=== PATIENT | female | born 1990 | race Caucasian/White ===

== ENCOUNTER 2016-05-12 21:42 | Emergency (ER) | payer MEDICAID ==
[2016-05-12 22:36] VITALS: BP 132/73
== END 2016-05-13 01:50 | disposition left against medical advice (07) ==
LOC: ER 21:42
DX: Z53.21 Procedure and treatment not carried out due to patient leaving prior to being seen by health care provider (principal)

== ENCOUNTER 2016-05-13 19:23 | Emergency (ER) | payer MEDICAID ==
--- NOTE | 2016-05-13 20:16 | ER Document Report ---
ED Medical Screen (RME) - General Chief Complaint: Abdominal Pain Stated Complaint: STOMACH PAIN TRAVEL OUTSIDE OF THE [place] IN LAST 30 DAYS: No - HPI Notes: 05/13/16 20:15 Patient is with vaginal spotting. Patient is a - Related Data Allergies/Adverse Reactions: No Known Allergies Allergy (Verified 01/15/16 17:25) Past Medical History - Past Medical History Cardiac Medical History: Reports: Hx Hypertension - PIH Denies: Hx Coronary Artery Disease, Hx Heart Attack Pulmonary Medical History: Denies: Hx Asthma, Hx Bronchitis, Hx COPD, Hx Pneumonia, Hx Tuberculosis Neurological Medical History: Reports: Hx Migraine. Denies: Hx Cerebrovascular Accident, Hx Seizures Renal/ Medical History: Denies: Hx Peritoneal Dialysis GI Medical History: Reports: Hx Gastroesophageal Reflux Disease Musculoskeltal Medical History: Reports Hx Arthritis - hands Psychiatric Medical History: Reports: Hx Anxiety, Hx Bipolar Disorder, Hx Depression Past Surgical History: Reports: Hx Cholecystectomy. Denies: Hx Hysterectomy, Hx Pacemaker - Immunizations Immunizations up to date: Yes Hx Diphtheria, Pertussis, Tetanus Vaccination: Yes Review of Systems - Review of Systems Female Genitourinary: Vaginal bleeding -: Yes All other systems reviewed and negative Physical Exam - Vital signs Vitals: Temp Pulse Resp BP Pulse Ox 98.2 F 75 18 129/75 H 98 05/13/16 19:34 05/13/16 19:34 05/13/16 19:34 05/13/16 19:34 05/13/16 19:34 - Abdominal Inspection: Normal, Obese Distension: No distension Bowel sounds: Normal Tenderness: Nontender Course - Vital Signs Vital signs: Temp Pulse Resp BP Pulse Ox 98.2 F 75 18 129/75 H 98 05/13/16 19:34 05/13/16 19:34 05/13/16 19:34 05/13/16 19:34 05/13/16 19:34
[2016-05-13 20:30] LABS: ABSOLUTE BASOPHILS # (AUTO) 0.1 10^3/uL (0.0-0.2); ABSOLUTE EOSINOPHILS # (AUTO) 0.7 10^3/uL (0.0-0.6); ABSOLUTE LYMPHOCYTES (AUTO) 2.9 10^3/uL (0.5-4.7); ABSOLUTE MONOCYTES (AUTO) 0.7 10^3/uL (0.1-1.4); ABSOLUTE NEUT (AUTO) 6.8 10^3/uL (1.7-8.2); BASOPHILS % (AUTO) 0.6 % (0-2); EOSINOPHILS % (AUTO) 6.4 % (0-6); HEMATOCRIT 37.2 % (36.0-47.0); HEMOGLOBIN 13.5 g/dL (12.0-15.5); HGB HCT DIFFERENCE 3.3; LYMPHOCYTES % (AUTO) 25.7 % (13-45); MEAN CORPUSCULAR HEMOGLOBIN 33.7 pg (27.0-33.4); MEAN CORPUSCULAR HGB CONC 36.3 g/dL (32.0-36.0); MEAN CORPUSCULAR VOLUME 93 fl (80-97); MONOCYTES % (AUTO) 6.4 % (3-13); RED BLOOD COUNT 4.01 10^6/uL (3.72-5.28); RED CELL DISTRIBUTION WIDTH 12.9 % (11.5-14.0); SEGMENTED NEUTROPHILS % (AUTO) 60.9 % (42-78); WHITE BLOOD COUNT 11.1 10^3/uL (4.0-10.5)
[2016-05-13 20:42] LABS: APPEARANCE,URINE CLOUDY; BILIRUBIN,URINE NEGATIVE (NEGATIVE); GLUCOSE, URINE NEGATIVE (NEGATIVE); KETONES,URINE NEGATIVE (NEGATIVE); LEUKOCYTE ESTERASE,URINE LARGE (NEGATIVE); NITRITE,URINE NEGATIVE (NEGATIVE); PROTEIN,URINE NEGATIVE (NEGATIVE); URINE SPECIFIC GRAVITY 1.028; UROBILINOGEN,URINE NEGATIVE mg/dL (<2.0)
[2016-05-13 20:57] LABS: ALANINE AMINOTRANSFERASE 35 U/L (9-52); ALKALINE PHOSPHATASE 77 U/L (38-126); ANION GAP 12 (5-19); ASPARTATE AMINO TRANSFERASE 19 U/L (14-36); BILIRUBIN,DIRECT 0.1 mg/dL (0.0-0.4); BILIRUBIN,TOTAL 0.3 mg/dL (0.2-1.3); BLOOD UREA NITROGEN 8 mg/dL (7-20); CARBON DIOXIDE 22 mmol/L (22-30); CHLORIDE 105 mmol/L (98-107); CREATININE RESULT 0.51 mg/dL (0.52-1.25); GLUCOSE 82 mg/dL (75-110); POTASSIUM 4.3 mmol/L (3.6-5.0); SODIUM 138.5 mmol/L (137-145); TOTAL PROTEIN 6.8 g/dL (6.3-8.2)
--- NOTE | 2016-05-13 21:02 | ER Document Report ---
ED General - General Chief Complaint: Abdominal Pain Stated Complaint: STOMACH PAIN Time seen by provider: 21:01 Mode of Arrival: Ambulatory Information source: Patient Notes: This is a 25-year-old female 2 para 1 last normal menstrual period March 01, approximately 10 weeks , presents to the emergency room with 3 days history of intermittent sharp suprapubic pain. Patient states she started having vaginal spotting this morning. Patient denies any near syncopal symptoms. TRAVEL OUTSIDE OF THE [place] IN LAST 30 DAYS: No - HPI Onset: Just prior to arrival Onset/Duration: Gradual Quality of pain: Sharp Severity: None Pain Level: Denies Associated symptoms: denies: Chills, Fever, Shortness of breath Exacerbated by: Denies Relieved by: Denies Similar symptoms previously: No Recently seen / treated by doctor: No - Related Data Allergies/Adverse Reactions: No Known Allergies Allergy (Verified 01/15/16 17:25) Past Medical History - General Information source: Patient - Social History Smoking Status: Never Smoker Cigarette use (# per day): No Chew tobacco use (# tins/day): No Frequency of alcohol use: None Drug Abuse: None Lives with: Family Family History: Reviewed & Not Pertinent Patient has suicidal ideation: No Patient has homicidal ideation: No - Past Medical History Cardiac Medical History: Reports: Hx Hypertension - PIH Denies: Hx Coronary Artery Disease, Hx Heart Attack Pulmonary Medical History: Denies: Hx Asthma, Hx Bronchitis, Hx COPD, Hx Pneumonia, Hx Tuberculosis Neurological Medical History: Reports: Hx Migraine. Denies: Hx Cerebrovascular Accident, Hx Seizures Renal/ Medical History: Denies: Hx Peritoneal Dialysis GI Medical History: Reports: Hx Gastroesophageal Reflux Disease Musculoskeltal Medical History: Reports Hx Arthritis - hands Psychiatric Medical History: Reports: Hx Anxiety, Hx Bipolar Disorder, Hx Depression Past Surgical History: Reports: Hx Cholecystectomy. Denies: Hx Hysterectomy, Hx Pacemaker - Immunizations Immunizations up to date: Yes Hx Diphtheria, Pertussis, Tetanus Vaccination: Yes Review of Systems - Review of Systems Notes: Review of systems: Constitutional: Denies fever, chills. EENT: Denies ear pain, sinus tenderness, throat pain, throat swelling. Cardiovascular: Denies chest pain, palpitations, dyspnea or edema. Respiratory: Denies wheezing, cough, hemoptysis. Abdomen: Denies nausea, vomiting, diarrhea. Denies BRBPR or melena. Genitourinary: See H&P Musculoskeletal: denies joint pain or swelling, denies back pain. Neurologic: Denies headache, photophobia, neck stiffness, weakness. Denies loss of bowel or bladder function. Denies saddle anesthesia. Skin: Denies rash, lesions. Physical Exam - Vital signs Vitals: Temp Pulse Resp BP Pulse Ox 98.2 F 75 18 129/75 H 98 05/13/16 19:34 05/13/16 19:34 05/13/16 19:34 05/13/16 19:34 05/13/16 19:34 Notes: Physical exam: GENERAL: 35-year-old female, ambulating, alert and oriented 3, no acute distress. HEAD: Atraumatic, normocephalic. EYES: Pupils equal round and reactive to light, extraocular movements intact, sclera anicteric, conjunctiva are normal. ENT: TMs normal, nares patent, oropharynx clear without exudates. Moist mucous membranes. NECK: Normal range of motion, supple without lymphadenopathy or JVD. LUNGS: Breath sounds clear to auscultation bilaterally and equal. No wheezes rales or rhonchi. HEART: Regular rate and rhythm without murmurs, rubs or gallops. ABDOMEN: Soft, normoactive bowel sounds. No tenderness to palpation. No guarding, no rebound. No masses appreciated. EXTREMITIES: Normal range of motion, no pitting or edema. No clubbing or cyanosis. NEUROLOGICAL: Cranial nerves II through XII grossly intact. Normal speech, normal gait. PSYCH: Normal mood, normal affect. SKIN: Warm, Dry, normal turgor, no rashes or lesions noted. Course - Vital Signs Vital signs: Temp Pulse Resp BP Pulse Ox 98.2 F 75 18 129/75 H 98 05/13/16 19:34 05/13/16 19:34 05/13/16 19:34 05/13/16 19:34 05/13/16 19:34 - Laboratory Result Diagrams: 05/13/16 20:15 05/13/16 20:15 Laboratory results interpreted by me: 05/13/16 05/13/16 05/13/16 20:15 20:15 20:15 WBC 11.1 H MCH 33.7 H MCHC 36.3 H Eosinophils % 6.4 H Absolute Eosinophils 0.7 H Creatinine 0.51 L Beta HCG, Quant 605595.00 H Ur Leukocyte Esterase LARGE H Urine Ascorbic Acid 20 H - Diagnostic Test Radiology reviewed: Image reviewed, Reports reviewed - History ultrasound shows an intrauterine at 10 weeks gestation Discharge - Discharge Clinical Impression: vaginal bleeding in early , UTI Condition: Stable Disposition: HOME, SELF-CARE Additional Instructions: The ultrasound showed that the baby is in the right place and has a good heartbeat. The gestational age was at 10 weeks. Your blood work was in the normal range. Recommendations: Do not take aspirin or ibuprofen. Tylenol was okay. Avoid heavy lifting, intercourse, tampons. Follow-up with your workers compensation claims assistant as planned. Return to the emergency room for worsening pain, bleeding, Any concerns or getting worse. Take antibiotics as prescribed. Worsening symptoms. Prescriptions: Cephalexin Monohydrate [Keflex 500 mg Capsule] 500 mg PO QID #20 capsule Referrals: SHIRA JO MD [Primary Care Provider] - Follow up as needed
[2016-05-13 22:58] VITALS: BP 130/77
== END 2016-05-13 22:57 | disposition home or self-care (01) ==
LOC: ER 19:23
DX: O23.41 Unspecified infection of urinary tract in pregnancy, first trimester (principal); R10.9 Unspecified abdominal pain; Z3A.10 10 weeks gestation of pregnancy
CPT/HCPCS: 36415; 76801; 80053; 81001; 83690; 84702; 85025; 86900; 86901; 99284

== ENCOUNTER 2016-09-09 18:42 | Outpatient (CLI) | payer MEDICAID ==
[2016-09-09 19:24] LABS: APPEARANCE,URINE CLOUDY; BILIRUBIN,URINE NEGATIVE (NEGATIVE); GLUCOSE, URINE NEGATIVE (NEGATIVE); KETONES,URINE TRACE mg/dL (NEGATIVE); LEUKOCYTE ESTERASE,URINE SMALL (NEGATIVE); NITRITE,URINE NEGATIVE (NEGATIVE); PROTEIN,URINE 30 mg/dL (NEGATIVE); URINE SPECIFIC GRAVITY 1.031; UROBILINOGEN,URINE NEGATIVE mg/dL (<2.0)
[2016-09-09 21:25] LABS: URINE BARBITURATES SCREEN NEGATIVE; URINE METHADONE SCREEN NEGATIVE; URINE OPIATES LOW NEGATIVE; URINE PHENCYCLIDINE SCREEN NEGATIVE
--- NOTE | 2016-09-09 21:43 | RADIOLOGY REPORT (SQ) ---
EXAM DESCRIPTION: U/S OB LIMITED COMPLETED DATE/TIME: 09/09/2016 9:23 pm REASON FOR STUDY: Cervical length COMPARISON: None. TECHNIQUE: Limited transvaginal and transabdominal grayscale ultrasound for evaluation of specific r equested obstetrical parameters. LIMITATIONS: None. FINDINGS: CERVICAL LENGTH: 4.3 cm Closed. JORGITO: Not performed. FHR: 127 beats per minute. PRESENTATION: Cephalic. OTHER: No other significant findings. IMPRESSION: LIMITED OBSTETRICAL ULTRASOUND WITH MEASURED PARAMETERS DELINEATED ABOVE. Trimester of : Third trimester - 28 weeks to delivery. TECHNICAL DOCUMENTATION: JOB ID: [id number] [employer]- All Rights Reserved
== END 2016-09-09 21:57 | disposition home or self-care (01) ==
LOC: LC 18:42
PROVIDERS: ATTEND Obstetrics & Gynecology
DX: O47.1 False labor at or after 37 completed weeks of gestation (principal)
CPT/HCPCS: 76815; 80307; 81005; 94760

== ENCOUNTER 2016-11-20 16:32 | Outpatient (CLI) | payer MEDICAID ==
--- NOTE | 2016-11-20 17:11 | Non Stress Test Report ---
Non Stress Test Datetime Report Generated by CPN: 11/20/2016 17:10 DEMOGRAPHIC EGA NST: 38.0 INDICATION Indication for Study: Ordered by Provider MONITORING Monitor Explained: Monitor Explained; Test Explained; Patient Verbalized Understanding Time on Monitor: 11/20/2016 16:47 Time off Monitor: 11/20/2016 17:08 NST Duration: 21 NST INTERVENTIONS NST Interventions: PO Hydration; Reposition Patient Physician Notified NST: J. Gusman, CNM BABY A: [id number] BABY A Movement : Present FHR Baseline : 130 Accelerations : 15X15 Decelerations : None Variability : Moderate 6-25bpm NST Review: Meets Criteria for Reactive NST NST Review and Verified By : XENIA Rodriguez Results: Reactive NST REPORT Report Trigger: Send Report
== END 2016-11-20 17:05 | disposition home or self-care (01) ==
LOC: LC 16:32
PROVIDERS: ATTEND Obstetrics & Gynecology
PROC: 4A1HXCZ Monitoring of Products of Conception, Cardiac Rate, External Approach (ICD-10-PCS; principal; 2016-11-20)
DX: Z34.83 Encounter for supervision of other normal pregnancy, third trimester (principal); Z36.89 Encounter for other specified antenatal screening; Z3A.38 38 weeks gestation of pregnancy
CPT/HCPCS: 59025

== ENCOUNTER 2016-12-12 10:59 | Outpatient (CLI) | payer MEDICAID ==
--- NOTE | 2016-12-14 05:37 | Non Stress Test Report ---
Non Stress Test Datetime Report Generated by CPN: 12/14/2016 05:36 DEMOGRAPHIC EGA NST: 41.1 INDICATION Indication for Study: Ordered by Provider Indication for Study (NST) Other: nst MONITORING Monitor Explained: Monitor Explained; Test Explained; Patient Verbalized Understanding Time on Monitor: 12/12/2016 11:10 Time off Monitor: 12/12/2016 11:37 NST Duration: 27 NST INTERVENTIONS NST Interventions: PO Hydration; Reposition Patient Physician Notified NST: Dr Balbuena BABY A: [id number] BABY A Movement : Present Contraction Frequency : 8.5-9 FHR Baseline : 120 Accelerations : 15X15 Decelerations : None Variability : Moderate 6-25bpm NST Review: Meets Criteria for Reactive NST NST Review and Verified By : XENIA Calderon Results: Reactive NST REPORT Report Trigger: Send Report
== END 2016-12-12 11:40 | disposition home or self-care (01) ==
LOC: LC 10:59
PROVIDERS: ATTEND Student in an Organized Health Care Education/Training Program
PROC: 4A1HXCZ Monitoring of Products of Conception, Cardiac Rate, External Approach (ICD-10-PCS; principal; 2016-12-12)
DX: O48.0 Post-term pregnancy (principal); O47.1 False labor at or after 37 completed weeks of gestation; Z3A.41 41 weeks gestation of pregnancy
CPT/HCPCS: 59025

== ENCOUNTER 2016-12-14 06:26 | Inpatient (IN) | payer MEDICAID ==
[2016-12-14] MEDS ORDERED: RINGERS SOLUTION,LACTATED 300 ML IV ONE (06:35)
[2016-12-14] MEDS ORDERED: RINGERS SOLUTION,LACTATED 1,000 ML IV PRN (06:35)
[2016-12-14] MEDS ORDERED: OXYTOCIN/NORMAL SALINE 20 UNIT/1,000 ML RTUINJ IV PRN ×2 (06:35→13:03)
[2016-12-14 07:34] LABS: APPEARANCE,URINE CLOUDY; BILIRUBIN,URINE SMALL (NEGATIVE); GLUCOSE, URINE NEGATIVE (NEGATIVE); KETONES,URINE NEGATIVE (NEGATIVE); LEUKOCYTE ESTERASE,URINE LARGE (NEGATIVE); NITRITE,URINE NEGATIVE (NEGATIVE); PROTEIN,URINE 100 mg/dL (NEGATIVE); URINE SPECIFIC GRAVITY 1.033
[2016-12-14 07:41] LABS: ABSOLUTE EOSINOPHILS # (AUTO) 0.2 10^3/uL (0.0-0.6); ABSOLUTE LYMPHOCYTES (AUTO) 1.6 10^3/uL (0.5-4.7); ABSOLUTE MONOCYTES (AUTO) 0.4 10^3/uL (0.1-1.4); ABSOLUTE NEUT (AUTO) 4.6 10^3/uL (1.7-8.2); BASOPHILS % (AUTO) 0.6 % (0-2); EOSINOPHILS % (AUTO) 2.7 % (0-6); HEMATOCRIT 33.9 % (36.0-47.0); HEMOGLOBIN 12.1 g/dL (12.0-15.5); HGB HCT DIFFERENCE 2.4; MEAN CORPUSCULAR HEMOGLOBIN 31.9 pg (27.0-33.4); MEAN CORPUSCULAR HGB CONC 35.5 g/dL (32.0-36.0); MEAN CORPUSCULAR VOLUME 90 fl (80-97); MONOCYTES % (AUTO) 6.1 % (3-13); RED BLOOD COUNT 3.78 10^6/uL (3.72-5.28); SEGMENTED NEUTROPHILS % (AUTO) 67.6 % (42-78); WHITE BLOOD COUNT 6.8 10^3/uL (4.0-10.5)
[2016-12-14] MEDS ORDERED: OXYTOCIN/NORMAL SALINE 20 UNIT/1,000 ML RTUINJ ONE (07:47)
[2016-12-14 07:59] LABS: URINE BARBITURATES SCREEN NEGATIVE; URINE METHADONE SCREEN NEGATIVE; URINE OPIATES LOW NEGATIVE; URINE PHENCYCLIDINE SCREEN NEGATIVE
[2016-12-14] MEDS ORDERED: MISOPROSTOL 0.2 MG TABLET ONE (10:03)
[2016-12-14] MEDS ORDERED: LIDOCAINE 1% INJ-PF (10 MG/ML) 30 ML SDV ONE (10:03)
[2016-12-14] MEDS ORDERED: BUPIVACAINE HCL 0.25 % INJ/PF (2.5 MG/1 ML) 30 ML VIAL ONE (10:20)
[2016-12-14] MEDS ORDERED: EPHEDRINE SULFATE INJ 50 MG/1 ML AMPULE ONE (10:20)
[2016-12-14] MEDS ORDERED: FENTANYL/BUPIVACAINE/NS/PF 200 MCG/100 ML RTUINJ EPI ONE (10:20)
[2016-12-14] MEDS ORDERED: ACETAMINOPHEN WITH CODEINE #3 TABLET PO PRN ×2 (13:03)
[2016-12-14] MEDS ORDERED: DIPH/PERTUSS(ACELL)/TETANUS VAC/PF 0.5 ML SYR (>=10YO) IM PRN (13:03)
[2016-12-14] MEDS ORDERED: BENZOCAINE/MENTHOL AEROSOL SPRAY 56 ML TOP PRN (13:03)
[2016-12-14] MEDS ORDERED: DIBUCAINE 1% OINTMENT 28 GM TP PRN (13:03)
[2016-12-14] MEDS ORDERED: MEASLES,MUMPS&RUBELLA VACC/PF 0.5 ML VIAL SUBCUT PRN (13:03)
[2016-12-14] MEDS ORDERED: ZOLPIDEM TARTRATE 5 MG TABLET PO PRN (13:03)
--- NOTE | 2016-12-14 13:12 | Delivery Summary ---
Del Sum A-C Datetime Report Generated by CPN: 12/14/2016 13:12 DELIVERY PERSONNEL DELIVERY PERSONNEL: [id number] Delivery Doctor:: Sharon Jefferson CNM Nurse Endless Track Vehicle Supervisor Certified:: Sharon Jefferson CNM Labor and Delivery Nurse:: Milagro Toledo RNfrozen foods manager Nurse:: Edna Rico RN Nursery Nurse:: Inessa Sarmiento RN Student Observers:: MILTON Rolle/HOME SCHOOL TEACHER: Lashell Stone, SENIOR HOUSEKEEPER Additional Personnel: : Lanie Cordova RNClyde MATERNAL INFORMATION Delivery Anesthesia: Epidural Medications After Delivery: Pitocin Drip 20 Units/1000ml NSS Estimated Blood Loss (ml): 300 Maternal Complications: None Provider Comments: SVDVF infant vigorous, to mothers abd. Cord clamped x 2 cut per family member. Cord blood collected, placenta intact via Jefferson mechanism, hemostasis acheived. EBL 300. Mother and infant stable. LABOR SUMMARY EDC: 12/04/2016 00:00 No. Babies in Womb: 1 Attempted: No Labor Anesthesia: Epidural LABOR INFORMATION Reason for Induction: Postterm Onset of Labor: 12/14/2016 08:32 Complete Dilatation: 12/14/2016 11:13 Oxytocin: Induction Group B Beta Strep: Negative Steroids Given: None Reason Steroids Not Administered: Not Applicable MEMBRANES Membranes Rupture Method: Artificial Rupture of Membranes: 12/14/2016 08:03 Length of Rupture (hr): 3.55 Amniotic Fluid Color: Light Meconium Amniotic Fluid Amount: Moderate Amniotic Fluid Odor: Normal STAGES OF LABOR Stage 1 hr: 2 Stage 1 min: 41 Stage 2 hr: 0 Stage 2 min: 23 Stage 3 hr: 0 Stage 3 min: 13 Total Time in Labor hr: 3 Total Time in Labor min: 17 VAGINAL DELIVERY Episiotomy: None Laceration #1: Perineal Laceration Extension #1: First Degree Other Laceration: bilat labial 1* Laceration Repair: Yes Laceration Repair Note: RT labia, 1 interrupted stitch with 3.0 chromic Sponge Count Correct: N/A Sharps Count Correct: N/A CSECTION DELIVERY Primary Indication: N/A Secondary Indication: N/A CSection Incidence: N/A Labor: N/A Elective: N/A CSection Incision: N/A BABY A INFORMATION Infant Delivery Date/Time: 12/14/2016 11:36 Method of Delivery: Vaginal Born in Route : No : N/A Forceps: N/A Vacuum Extraction: N/A Shoulder Dystocia : No PRESENTATION/POSITION BABY A Presentation: Cephalic Cephalic Presentation: Vertex Vertex Position: Right Occipital Anterior Breech Presentation: N/A PLACENTA INFORMATION BABY A Placenta Delivery Time : 12/14/2016 11:49 Placenta Method of Delivery: Spontaneous Placenta Status: Delivered SCORES BABY A Heart Rate 1 min: >100 bpm Resp Effort 1 min: Good Cry Reflex Irritability 1 min: Cough or Sneeze or Pulls Away Muscle Tone 1 min: Active Motion Color 1 min: Body [place], Extremities Blue Resuscitation Effort 1 min: Tactile Stimulation SCORE 1 MIN: 9 Heart Rate 5 min: >100 bpm Resp Effort 5 min: Good Cry Reflex Irritability 5 min: Cough or Sneeze or Pulls Away Muscle Tone 5 min: Active Motion Color 5 min: Body [place], Extremities Blue SCORE 5 MIN: 9 INFANT INFORMATION BABY A Gestational Age at Delivery: 41.3 Gestational Status: Late Term- 41- 41.6 Weeks Outcome : Liveborn Infant Condition : Stable Infant Sex: Male IDENTIFICATION BABY A Infant Verification Date/Time: 12/21/2016 11:55 ID Band Number: [id number] Mother's Name Verified: Yes RN Verifying Infant: A. Bobyine RN/ CArleen Rico RN WEIGHT/LENGTH BABY A Infant Birthweight (gm): 3645 Infant Weight (lb): 8 Infant Weight (oz): 1 Infant Length (in): 20.50 Infant Length (cm): 52.07 CORD INFORMATION BABY A No. Cord Vessels: 3 Nuchal Cord : N/A Cord Blood Taken: Yes-For Storage (Mom's Blood type +) Infant Suction: None ASSESSMENT BABY A Infant Complications: None Physical Findings at Delivery: Within Normal Limits Infant Respirations: Appears Normal Skin to Skin: Yes Skin to Skin Time (min): 60 Smoking Pipe Liner/ALS Called : No Care By: Inessa Torsten, RN Transferred To: Remains with Mother BABY B INFORMATION : N/A SIGNATURES Assignment: Phoenix Salguero MD Signature: with User ID: [email or web address] : with User ID: [email or web address] : I was personally available for consultation and serving as supervising physician for the MLP.
--- NOTE | 2016-12-14 14:13 | Admission Physical ---
Datetime Report Generated by CPN: 12/14/2016 14:13 CURRENT ADMISSION Chief Complaint: Scheduled Induction of Labor Indication for Induction: Postterm Indication for Induction: No Active Labor Admit Plan: Initiate Labor Induction Protocol Admit Plan- Other: GBS neg ALLERGIES Medication Allergies: Yes Medication Allergies: No Known Allergies (12/14/2016) Medication Allergies: No Known Allergies (11/20/2016) Medication Allergies: No Known Allergies (09/09/2016) Medication Allergies: No Known Allergies (01/15/2016) Medication Allergies: zyrtec Medication Allergies: No Known Allergies (07/21/2013) Latex: No Latex Allergies Food Allergies: N/A Environmental Allergies: N/A OBSTETRICAL HISTORY EDC: 12/04/2016 00:00 : 2 Para: 1 Term: 1 : 0 SAB: 0 IAB: 0 Ectopic: 0 Livin Cesareans: 0 VBACs: 0 Multiple Births: 0 Gestational Diabetes: No Rh Sensitization: No Incompetent Cervix: No CARMEN: No Infertility: No ART Treatment: No Uterine Anomaly: No IUGR: Yes Hx Previous C/S: No Macrosomia: No Hx Loss/Stillborn: No PIH: No Hx : No Placenta Previa/Abruption: No Depression/PP Depression: Yes PTL/PROM: No Post Hemorrhage: No Current Procedures: Ultrasound Obstetrical History Comments: G1: 2011, female 5# 3oz, induced for oligo @ 39 weeks G2: current SEE RECORDS Alcohol: No Marijuana : No Cocaine: No Other Illicit Drugs: No Cigarettes: Current Everyday Smoker. [id number] Cigarette Frequency: > 10 per day Advised to Stop: Yes MEDICAL HISTORY Diabetes: No Blood Transfusion: No Pulmonary Disease (Asthma, TB): No Breast Disease: No Hypertension: No Sap Abap Programmer Surgery: Yes Heart Disease: No Hosp/Surgery: Yes Autoimmune Disorder: No Anesthetic Complications: No Kidney Disease: Yes Abnormal Pap Smear: Yes Neuro/Epilepsy: No Psychiatric Disorders: Yes Other Medical Diseases: No Hepatitis/Liver Disease: No Significant Family History: No Varicosities/Phlebitis: No Trauma/Violence : No Thyroid Dysfunction: Yes Medical History Comments: anxiety and bipolar (no meds while ), hypothyroidism with first , hypertension with first , childbirth, gallbladder removal, cyst removal from ovary INFECTIOUS HISTORY Gonorrhea: No Genital Herpes: No Chlamydia: No Tuberculosis: No Syphilis: No Hepatitis: No HIV/AIDS Exposure: No Rash or Viral Illness: No HPV: No PHYSICAL EXAM General: Normal HEENT: Deferred Neurologic: Normal Thyroid: Deferred Heart: Normal Lungs: Normal Breast: Deferred Back: Deferred Abdomen: Normal Genitourinary Exam: Normal Extremities: Deferred DTRs: Deferred Pelvic Type: Adequate Physical Exam Comments: AROM VAGINAL EXAM Dilatation: 4 Effacement: 60 Station: -2 MEMBRANES Membranes: Ruptured Amniotic Fluid Color: Meconium, Light FETUS A EGA: 41.3 Monitoring: External US Variability: Moderate 6-25bpm Decelerations: None Presentation: Vertex PLANS FOR LABOR AND DELIVERY Labor and Delivery: None Pain Management: Epidural Feeding Preference: Formula Benefit of Breast Feed Discussed: Yes Circumcision: Yes INFORMED CONSENT Assignment: Phoenix Salguero MD Signature: with User ID: [email or web address] : with User ID: [email or web address]
[2016-12-14] MEDS: IBUPROFEN 800 MG TABLET PO SCH ×2 (15:42→21:29)
[2016-12-14] MEDS ORDERED: INFLUENZA ADLT QUAD (36MOS+) 2017-18 VAC 0.5 ML SYR IM PRN (16:04)
[2016-12-14] MEDS: FERROUS SULFATE 325 MG TABLET PO SCH (17:55)
[2016-12-14] MEDS: DOCUSATE SODIUM 100 MG CAPSULE PO SCH (17:55)
[2016-12-15] MEDS: IBUPROFEN 800 MG TABLET PO SCH ×2 (05:14→13:16)
[2016-12-15 07:23] LABS: HEMATOCRIT 30.7 % (36.0-47.0); HEMOGLOBIN 11.1 g/dL (12.0-15.5); HGB HCT DIFFERENCE 2.6; MEAN CORPUSCULAR HGB CONC 36.2 g/dL (32.0-36.0); MEAN CORPUSCULAR VOLUME 91 fl (80-97); RED BLOOD COUNT 3.36 10^6/uL (3.72-5.28); RED CELL DISTRIBUTION WIDTH 13.1 % (11.5-14.0); WHITE BLOOD COUNT 10.7 10^3/uL (4.0-10.5)
[2016-12-15 08:06] VITALS: BP 132/91
[2016-12-15] MEDS: FERROUS SULFATE 325 MG TABLET PO SCH ×2 (09:39→17:28)
[2016-12-15] MEDS: DOCUSATE SODIUM 100 MG CAPSULE PO SCH ×2 (09:40→17:28)
[2016-12-15] MEDS ORDERED: PRENATAL VITAMIN W-O CA NO5/FE FUMARATE/FA CAPSULE PO SCH (10:00)
[2016-12-15] MEDS ORDERED: SENNOSIDES/DOCUSATE 8.6-50 MG 1 EACH TABLET PO SCH (10:00)
--- NOTE | 2016-12-15 10:54 | PDOC PROGRESS REPORT ---
Subjective-OB Subjective: Post Delivery Day: 26 year old. Denies any needs at this time. Asking for early discharge as bed not comfortable. Physical Exam (OB) Vital Signs: Temp Pulse Resp BP Pulse Ox 98.2 F 69 14 132/91 H 99 12/15/16 07:50 12/15/16 07:50 12/15/16 07:50 12/15/16 07:50 12/15/16 07:50 Intake & Output 12/14/16 12/15/16 12/16/16 06:59 06:59 06:59 Weight 108.03 kg - PIH/Pre-Eclampsia DTR's: 2 + Clonus: Negative Headache: Absent Epigastric Pain: No Visual Changes: No - Lochia Lochia Amount: Small 10-25 ml Lochia Color: Rubra/Red - Abdomen Description: Tender, Soft Hernia Present: No Bowel Sounds: Normoactive Flatus Presence: Present Stool: Yes Fundal Description: Firm Fundal Height: u/u - u/2 Objective-Diagnostic Laboratory: 12/15/16 07:11 12/15/16 07:11 WBC 10.7 H RBC 3.36 L Hgb 11.1 L Hct 30.7 L MCV 91 MCH 33.0 MCHC 36.2 H RDW 13.1 Plt Count 200
--- NOTE | 2016-12-15 10:59 | PDOC DISCHARGE SUMMARY ---
Final Diagnosis Discharge Date: 12/15/16 - Final Diagnosis (1) Abnormal AFP screen Is this a current diagnosis for this admission?: Yes (2) History depression and anxiety Is this a current diagnosis for this admission?: Yes (3) Hx LMP borderline tumor Is this a current diagnosis for this admission?: Yes (4) Obesity Is this a current diagnosis for this admission?: Yes (5) Poor dentition Is this a current diagnosis for this admission?: Yes (6) Is this a current diagnosis for this admission?: Yes (7) Smoker Is this a current diagnosis for this admission?: Yes (8) Vaginal delivery Is this a current diagnosis for this admission?: Yes Discharge Data - Discharge Medication Home Medications: Vit/Iron Fum/Folic AC [ Tablet] 1 each PO DAILY 09/09/16 Gestational Age: 41.3 wks Reason(s) for Admission: Induction of Labor Procedures: Ultrasound Intrapartum Procedure(s): Spontaneous Vaginal Delivery Complication(s): Laceration-Perineal Laceration-Degree: 1st - [place] Data Baby 1 Male at 1 minute: 9 at 5 minutes: 9 Weight: 3.657 kg Home with Mother: Yes Complications: No - Diagnosis Test Laboratory: Temp Pulse Resp BP Pulse Ox 98.2 F 69 14 132/91 H 99 12/15/16 10:54 12/15/16 10:54 12/15/16 10:54 12/15/16 07:50 12/15/16 10:54 12/14/16 12/14/16 12/15/16 06:35 07:22 07:11 RBC 3.78 3.36 L Hgb 12.1 11.1 L Hct 33.9 L 30.7 L Urine Opiates Screen NEGATIVE - Discharge information/Instructions Discharge Activity: Activity As Tolerated, Balance Activity w/Rest, Pelvic Rest , Slowly Increase Activity, No tub bath Discharge Diet: Regular Disposition: HOME, SELF-CARE Follow [facility] with: [facility] in: 4, Weeks
== END 2016-12-15 17:29 | disposition home or self-care (01) | DRG 775 ==
LOC: LR 06:26 → 2S 14:12
PROVIDERS: ADMIT Obstetrics & Gynecology Gynecology; ATTEND Obstetrics & Gynecology Gynecology
PROC: 10E0XZZ Delivery of Products of Conception, External Approach (ICD-10-PCS; principal; 2016-12-14)
PROC: 0HQ9XZZ Repair Perineum Skin, External Approach (ICD-10-PCS; 2016-12-14)
PROC: 3E0234Z Introduction of Serum, Toxoid and Vaccine into Muscle, Percutaneous Approach (ICD-10-PCS; 2016-12-15)
DX: O48.0 Post-term pregnancy (principal); O99.334 Smoking (tobacco) complicating childbirth; F17.210 Nicotine dependence, cigarettes, uncomplicated; O70.0 First degree perineal laceration during delivery; F41.8 Other specified anxiety disorders; O99.344 Other mental disorders complicating childbirth; O99.214 Obesity complicating childbirth; E66.9 Obesity, unspecified; Z68.38 Body mass index [BMI] 38.0-38.9, adult; Z3A.41 41 weeks gestation of pregnancy; Z37.0 Single live birth; Z23 Encounter for immunization
CPT/HCPCS: 36415; 80307; 81005; 85025; 85027; 86592; 86850; 86900; 86901; 90686; J2590; J3490